=== PATIENT | male | born 1980 | race Caucasian/White ===

== ENCOUNTER 2024-03-29 10:48 | Day surgery (SDC) | payer OTHER ==
[~2024-03-29] VITALS: Ht 188 cm; Wt 113.4 kg
[2024-03-29] MEDS ORDERED: fentaNYL citrate 0.05 MG/ML VIAL ONE (12:38)
[2024-03-29] MEDS: MIDAZOLAM 2 MG/2 ML VIAL ONE (12:50)
[2024-03-29] MEDS ORDERED: MIDAZOLAM 2 MG/2 ML VIAL IVP ONE (14:05)
== END 2024-03-29 14:06 | disposition home or self-care (01) ==
LOC: MDS 10:48 → MMU 11:34 → MDS 14:06
PROVIDERS: ATTEND Internal Medicine Gastroenterology
DX: T17.920A Food in respiratory tract, part unspecified causing asphyxiation, initial encounter (principal); F41.9 Anxiety disorder, unspecified; Z88.0 Allergy status to penicillin; Z88.1 Allergy status to other antibiotic agents; Z87.891 Personal history of nicotine dependence; Z79.899 Other long term (current) drug therapy; Z98.890 Other specified postprocedural states; Y83.8 Other surgical procedures as the cause of abnormal reaction of the patient, or of later complication, without mention of misadventure at the time of the procedure
CPT/HCPCS: 43235; J2250; J3010